=== PATIENT | male | born 1960 | race Caucasian/White ===

== ENCOUNTER → 2016-07-22 | Outpatient (CLI) | payer BC ==
[2016-07-22] VITALS (14 sets, daily range): BP systolic 98–130; BP diastolic 65–80
[~2016-07-22] VITALS: Ht 177.8 cm; Wt 77.1 kg
[~2016-07-22] MED LIST: FENTANYL PF 250 MCG/5 ML VIAL. IV ONE; FENTANYL PF 250 MCG/5 ML VIAL. ONE; KETOROLAC TROMETHAMINE 30 MG/ML INJ. IV PRN; LIDOCAINE 1% / SOD BICARB 8.4% 20 ML VIAL. IJ ONE; MIDAZOLAM HCL/PF 5 MG/5 ML VIAL. IV ONE; MIDAZOLAM HCL/PF 5 MG/5 ML VIAL. ONE; PROVENTIL HFA6.7 GM IH; [UNRECOGNIZED DRUG - OTHER]
[2016-07-22 07:41] LABS: BASO # 0.1 x10^3/uL (0.0-0.2); BASO % 1 % (0-3); EOS % 5 % (0-3); HEMATOCRIT 45.3 % (39.0-53.0); LYMPH # 1.5 x10^3/uL (1.0-4.8); LYMPH % 25 % (24-48); MEAN CORPUSCULAR HEMOGLOBIN 28 pg (25-35); MEAN CORPUSCULAR HGB CONC 33 g/dL (31-37); MEAN CORPUSCULAR VOLUME 85 fL (79-100); MONO % 9 % (0-9); NEUT % 60 % (31-73); PLATELET COUNT 240 x10^3/uL (140-400); RED BLOOD COUNT 5.31 x10^6/uL (4.30-5.70); RED CELL DISTRIBUTION WIDTH 14.6 % (11.5-14.5); WHITE BLOOD COUNT 6.1 x10^3/uL (4.0-11.0)
[2016-07-22 07:51] LABS: PROTHROMBIN TIME PATIENT 12.3 SEC (11.7-14.0)
--- NOTE | 2016-07-22 09:43 | PDOC ---
MODERATE SEDATION ASSESSMENT RISKS/ALTERNATIVES Risks/Alternatives Risks and alternatives of this type of sedation and procedure discussed with: RISK/ALTERNATIVES: Patient H & P ON CHART H & P H & P on chart and reviewed for co-morbid conditions and appropriate labs. H&P ON CHART: Yes STATUS PREG STATUS ASSESSED: N/A MEDS/ALLERGIES REVIEWED Meds/Allergies Reviewed Medications and Allergies including time and route of recently administered narcotics and sedatives. MEDS/ALLERGIES REVIEWED: Yes ASA RATING ASA RATING: II AIRWAY ASSESSMENT Airway Assessment Airway patency, oral function limitations, presence of caps, crowns, dentures, partials, and ability to extend neck assessed. AIRWAY ASSESSMENT: Yes MALLAMPATI SCORE MALLAMPATI SCORE: II PRE-SEDATION ASSESSMENT PRE-SEDATION ASSESSMENT: Yes JOAN ANDUJAR MD Jul 22, 2016 09:43
--- NOTE | 2016-07-22 09:49 | PDOC1 ---
History and Physical Date of Procedure Date of Admission 07/22/[address] guided rt lung mass bx Indication Indication 56 YO previous smoker, with a 2.5cm, noncalcific parenchymal mass within posterolateral aspect of right lung base---? bronchogenic carcinoma Past Medical History Past Medical History See Nursing Pre procedure PMH Past Surgical History Past Surgical History See Nursing Pre procedure PSH Current Medications Current Medications Current Medications Lidocaine/Sodium Bicarbonate (Buffered Lidocaine 1%) 20 ml STK-MED ONCE IJ ; Start 07/22/16 at 08:09; Stop 07/22/16 at 08:10; Status DC Midazolam HCl (Versed) 5 mg STK-MED ONCE .ROUTE ; Start 07/22/16 at 08:38; Stop 07/22/16 at 08:39; Status DC Fentanyl Citrate (Fentanyl 5ml Vial) 250 mcg STK-MED ONCE .ROUTE ; Start at 08:38; Stop 07/22/16 at 08:39; Status DC Lidocaine/Sodium Bicarbonate (Buffered Lidocaine 1%) 20 ml 1X ONCE IJ Last administered on 07/22/16 09:34; Start 07/22/16 at 08:45; Stop 07/22/16 at 08:46 ; Status DC Midazolam HCl (Versed) 5 mg 1X ONCE IV Last administered on 07/22/16 09:34; Start 07/22/16 at 08:45; Stop 07/22/16 at 08:46; Status DC Fentanyl Citrate (Fentanyl 5ml Vial) 250 mcg 1X ONCE IV Last administered on 09:34; Start 07/22/16 at 08:45; Stop 07/22/16 at 08:46; Status DC Active Scripts Active Reported [advail] PRN Proventil Hfa Inhaler (Albuterol Sulfate) 6.7 Gm Hfa.aer.ad 1 Puff IH PRN Q4HRS Allergies Allergies: Coded Allergies: No Known Drug Allergies (Unverified , 07/22/16) Physical Exam Vital Signs Vital Signs Date Time Temp Pulse Resp B/P Pulse Ox O2 Delivery O2 Flow Rate FiO2 07/22/16 09:34 14 96 Nasal Cannula 2.0 07/22/16 09:28 71 07/22/16 08:00 97.8 120/78 97.8 Lungs: Clear to auscultation Heart: Regular rate Psych/Mental Status: Mental status NL Diagnostic Data/Imaging Images Outside CT chest from [facility] imaging dated 06/18/16 reviewed Assessment Assessment Previous smoker with CT evidence of emphysema and with noncalcific 2.5 cm mass within rt lung base---? bronchogenic carcinoma. Problems: Plan Plan CT guided rt lung mass bx, with possible chest tube insertion. JOAN ANDUJAR MD Jul 22, 2016 09:49
--- NOTE | 2016-07-22 09:53 | PDOC ---
Exam Compensation Consulting Manager Compensation Consulting Manager Marcela Manager Studio Manager Studio B Cates Pre-Procedure Diagnosis Pre-Procedure Diagnosis 56 YO male prior smoker with emphysema, and with 2.5cm noncalcific mass within right lung base----? bronchogenic carcinoma Post-Procedure Diagnosis Post-Procedure Diagnosis Same Procedure Performed Procedure Performed CT guided rt lung mass biopsy. Type of Anesthesia Type of Anesthesia Local + Mod sedation Estimated Blood Loss EBL: Minimal Specimens Specimans 3 18G core bx samples to path in formalin Condition of Patient Condition of Patient Stable. Small immediate post bx ptx aspirated thru bx guided needle prior to removal. Disposition Disposition From IR/CT to CVOBS. 1 hr post bx insp/exp CXR requested. Home from [facility]OBS post recovery, if no ptx or other problem. F/u with Dr Johnson. Full report to follow. JOAN ANDUJAR MD Jul 22, 2016 09:53
--- NOTE | 2016-07-22 11:02 | RAD ---
Portable chest, inspiration and expiration AP views, 07/22/2016: History: Lung biopsy follow-up No previous chest radiographs are available at this time for comparison purposes. The heart size and pulmonary vascularity are normal. There is an ill-defined parenchymal opacity in the lateral aspect of the right lower lobe compatible with the lesion biopsied earlier today. There are emphysematous changes in the apices. There are scattered parenchymal scars. Blunting of the left lateral costophrenic angle is probably due to scarring. There is no evidence of pneumothorax or significant hemothorax status post right lung biopsy. IMPRESSION: 1. Emphysema with parenchymal scarring. 2. Right basilar lung nodule. 3. No post lung biopsy complication is identified.
--- NOTE | 2016-07-23 07:15 | RAD ---
CT-guided right lung biopsy Indication: 56-year-old male previous smoker with a spiculated, noncalcified, subpleural parenchymal mass within posterior lateral aspect of right lung base. Probable bronchogenic carcinoma. CT-guided biopsy has been requested. Anesthesia: 26 minutes moderate sedation was provided utilizing a total of 1 mg Versed and 50 mcg fentanyl, IV. The patient was appropriately monitored by a qualified independent observer throughout the time of moderate sedation. Consent: The procedure was explained in its entirety to the patient and/or the patient's designated technical support representative by a member of the treatment team. This included a discussion of risks and benefits and acceptable alternatives to the procedure, as well as expected consequences of no treatment at all. Discussion of risks included, but was not limited to, those that are most frequent and those that are rare, but possibly severe or life-threatening, as well as the possibility of unforeseen complications. Procedure: Informed consent was obtained from the patient. He was placed prone on the CT scanner. Preliminary noncontrast CT images were obtained through lung bases. Those images confirmed the presence of a spiculated, noncalcified, subpleural parenchymal opacity within posterior lateral aspect of right lung base. A right posterior lateral skin site suitable for CT-guided biopsy was selected and marked. That area was prepped and draped in the usual sterile fashion. Moderate sedation was provided with IV Versed and fentanyl. Using aseptic technique, local anesthesia, and CT guidance, a 17-gauge guide needle was successfully introduced into the right lung mass. A total of 3 18-gauge core biopsy samples were obtained. Biopsy material was submitted in formalin to pathology. Patient tolerated the procedure well without apparent complication. Completion CT images revealed no evidence of immediate pneumothorax. A 1 hour post biopsy inspiration/expiration chest x-ray will be obtained in CV observation, to exclude delayed pneumothorax, prior to patient discharge. Impression: Successful, uneventful CT-guided biopsy of right lower lobe noncalcified, spiculated lung mass, as described. PQRS Compliance Statement: One or more of the following individualized dose reduction techniques was utilized for this procedure: 1. Automated exposure control. 2. Adjustment of MA and/or KV according to patient size. 3. Iterative reconstruction technique.
--- NOTE | 2016-07-24 13:09 | PATHOLOGY ---
PATHOLOGY REPORT * * * * * * * * FINAL DIAGNOSIS: Lung, "right lower lobe lung mass," needle core biopsies: - MODERATELY DIFFERENTIATED ADENOCARCINOMA. (SEE COMMENT) COMMENT: This case is also reviewed by Dr. Ceci Gordon. This case is discussed with Dr. Evan Medrano on 07/24/2016 at 11am. (SHA:; d/t: 07/23/16) REPORT ELECTRONICALLY SIGNED BY: Beck Ohara M.D. DATE/TIME: 07/24/2016 13:08 * * * * * * * * GROSS PATHOLOGY: Received in formalin labeled "Jasmeet Castro, right lung biopsy," are four distinct needle cores of voss soft tissue ranging from 0.6 to 1.4 cm in length, which are submitted entirely in cassette A1. (CAA; 07/23/2016) INITIAL CPT CODE(S): A; 35492 Professional services performed [place] [facility] [address] Technical services performed by [facility] at [address] [place] [address] [address] [address]. SPECIMEN(S) RECEIVED: A.Right lower lobe lung mass CLINICAL HISTORY: Previous smoker, right lower lobe lung mass, ? bronch ca PATIENT: JASMEET CASTRO /AGE: 1001/24/1960 (Age: 56) PATIENT #: [id number] ALT CASE #: SPECIMEN COLLECTION DATE: 07/22/2016 SPECIMEN RECEIVED DATE: 07/22/2016 [facility] - [address] [place] [address] - PHONE: [phone] * * * END OF REPORT * * *
== END | disposition home or self-care (01) ==
LOC: INTRAD 07:02
PROVIDERS: ATTEND Internal Medicine Critical Care Medicine
DX: C34.31 Malignant neoplasm of lower lobe, right bronchus or lung (principal); J45.909 Unspecified asthma, uncomplicated; Z87.891 Personal history of nicotine dependence; Z86.14 Personal history of Methicillin resistant Staphylococcus aureus infection; Z79.01 Long term (current) use of anticoagulants
CPT/HCPCS: 32405; 36415; 71035; 77012; 85027; 85610; J2250; J3010; 88305

== ENCOUNTER → 2016-08-04 | Outpatient (CLI) | payer BC ==
[2016-07-22 11:30] VITALS: BP 119/71
[~2016-08-04] MED LIST changes: -FENTANYL PF 250 MCG/5 ML VIAL. IV ONE; -FENTANYL PF 250 MCG/5 ML VIAL. ONE; -KETOROLAC TROMETHAMINE 30 MG/ML INJ. IV PRN; -LIDOCAINE 1% / SOD BICARB 8.4% 20 ML VIAL. IJ ONE; -MIDAZOLAM HCL/PF 5 MG/5 ML VIAL. IV ONE; -MIDAZOLAM HCL/PF 5 MG/5 ML VIAL. ONE
--- NOTE | 2016-08-04 17:44 | RESP ---
DATE OF SERVICE: 08/04/2016 The patient's FVC was 3.29 which is 67% of predicted. FEV1 was 1.4 which is 39% of predicted. FEV1/FVC ratio was reduced. Post-bronchodilator, there was a significant improvement in FEV1 to 1.93 which was 34% of predicted and 18% improvement in FVC. Lung volume showed total lung capacity 164% of predicted, residual volume 367% of predicted. Diffusion capacity is 71% of predicted. IMPRESSION: 1. Moderate to severe obstructive airway disease. 2. Excellent response to bronchodilators suggesting a component of reactive airway disease as well. 3. Lung volumes consistent with hyperinflation and air trapping. 4. Mildly reduced diffusion capacity. LEODAN KOEHLER MD DR: INGRID/carla JOB#: [id number] / [id number]
--- NOTE | 2016-08-06 17:36 | RESP ---
DATE OF SERVICE: 08/04/2016 The patient's FVC was 3.29 which was 67% of predicted. FEV1 was 1.44 which was 39% of predicted. The FEV1/FVC ratio was reduced. Postbronchodilator, he had an excellent response. His FEV1 improved to 1.93 which was 52% of predicted, and this was a 34% improvement. His FVC improved 18% as well post-bronchodilator. Total lung capacity was 164% of predicted. Residual volume was 367% of predicted. Diffusion capacity was 71% of predicted. IMPRESSION: 1. Moderate to severe obstructive airway disease with an excellent response to bronchodilators. 2. Lung volumes consistent with air trapping and hyperinflation. 3. Mildly reduced diffusion capacity. LEODAN KOEHLER MD DR: INGRID/carla JOB#: [id number] / [id number] JU
== END | disposition home or self-care (01) ==
LOC: PF 07:58
PROVIDERS: ATTEND Internal Medicine Critical Care Medicine
DX: R06.02 Shortness of breath (principal)
CPT/HCPCS: 94060; 94729

== ENCOUNTER → 2016-08-13 | Outpatient (CLI) | payer BC ==
[2016-07-22 11:30] VITALS: BP 119/71
--- NOTE | 2016-08-13 15:31 | RAD ---
FDG tumor localization scan, PET/CT, 08/13/2016: History: Lung mass Following IV injection of 13.3 mCi of 18 F-FDG, imaging was performed from the skull base to the proximal thighs. The noncontrast CT component was performed for attenuation correction and anatomic localization purposes rather than for primary diagnosis. The patient's blood glucose level at time of injection was 94 MG/DL. There is a hypermetabolic mass in the posterolateral aspect of the right lower lobe. It demonstrates a maximum SUV of 10.5. It measures approximately 3.5 cm in diameter. Its margins are irregular. This mass appears to have increased slightly in size since an outside CT study from 06/18/2016. There are 2 hypermetabolic foci at the right hilum demonstrating a maximum SUV of 6.8. These are presumably lymph nodes, however, they cannot be clearly from the unopacified vessels on the noncontrast CT images. There are additional tiny mildly hypermetabolic foci in the right paratracheal and subcarinal regions. History of the of these mediastinal foci is approximately 3.0. There is a small hypermetabolic focus in the anterior aspect of the left upper chest which corresponds to a small irregular pleural-parenchymal opacity. The maximum SUV at this level is 3.3. This process could be inflammatory or neoplastic. There is a small hypermetabolic focus involving the anterolateral aspect of approximately the right sixth rib. There is a tiny underlying sclerotic focus in the rib at this level. A blastic metastasis is a possibility. Physiologic activity is evident in the neck. Normal GI tract and urinary tract activity is present in the abdomen and pelvis. No hypermetabolic abdominal or pelvic process is seen. The prostate gland is mildly enlarged, partially calcified and demonstrates nonspecific nonspecific heterogeneous FDG uptake. Incidental CT findings include the presence of moderate pulmonary emphysema with scattered parenchymal scars. IMPRESSION: 1. Enlarging hypermetabolic right lower lobe pulmonary mass suggesting a primary lung malignancy. 2. Hypermetabolic foci at the right hilum compatible with adenopathy on a metastatic basis. 3. Less prominent small foci of abnormal right paratracheal and subcarinal FDG activity suggesting early adenopathy. 4. Small subpleural hypermetabolic lesion in the left upper lobe which may be inflammatory or neoplastic. 5. Hypermetabolic sclerotic focus in the right sixth rib raising the possibility of a bony metastasis.
== END | disposition home or self-care (01) ==
LOC: PETSC 12:05
PROVIDERS: ATTEND Internal Medicine Critical Care Medicine
DX: R91.8 Other nonspecific abnormal finding of lung field (principal); R59.9 Enlarged lymph nodes, unspecified
CPT/HCPCS: 78815; A9552

== ENCOUNTER → 2016-09-22 | Outpatient (CLI) | payer BC ==
[2016-07-22 11:30] VITALS: BP 119/71
[~2016-09-22] MED LIST changes: +GADOBUTROL 7.5 MMOL/7.5 ML VIAL IV ONE; +TIOT4MIS3 IH
--- NOTE | 2016-09-22 13:31 | RAD ---
MRI of the Brain without and with Contrast 09/22/2016 Clinical History: Newly diagnosed with lung cancer. Technique: Unenhanced T1-weighted sagittal and axial and FLAIR, T2-weighted, gradient echo and diffusion-weighted axial images of the brain were obtained. After the intravenous administration of 7.5 cc of Gadavist, enhanced T1-weighted axial, sagittal and coronal images of the brain were obtained. Findings: There is mild generalized parenchymal atrophy. Patchy and small scattered areas of abnormally increased signal intensity are seen within the periventricular and subcortical white matter of both cerebral hemispheres on the FLAIR and T2-weighted images consistent with areas of very mild small vessel ischemic disease. No acute parenchymal abnormality is seen. No abnormal area of contrast enhancement is noted. No extra-axial fluid collection is seen. There is no MRI evidence of acute ischemia/infarction. Mild mucosal thickening is seen throughout the paranasal sinuses. There are minimal bilateral mastoid effusions. Normal flow voids are seen within the major vascular structures surrounding the brain parenchyma. Impression: No acute parenchymal abnormality is seen. There is no MRI evidence of metastatic disease involving the brain parenchyma. Electronically signed by: Evan Cisneros MD (09/22/2016 1:28 PM)
== END | disposition home or self-care (01) ==
LOC: MRI 10:44
PROVIDERS: ATTEND Radiology Radiation Oncology
DX: C34.90 Malignant neoplasm of unspecified part of unspecified bronchus or lung (principal); G31.9 Degenerative disease of nervous system, unspecified
CPT/HCPCS: 70553; A9585

== ENCOUNTER → 2017-04-30 | Outpatient (CLI) | payer BC ==
[2017-04-30] MEDS: IOHEXOL 300 MG/ML 100ML VIAL. IV ×2 (13:50)
[2017-04-30 13:55] LABS: ISTAT CREATININE 0.9 mg/dL (0.7-1.3)
== END | disposition home or self-care (01) ==
LOC: KCIC CT 13:17
DX: I26.99 Other pulmonary embolism without acute cor pulmonale (principal); I70.0 Atherosclerosis of aorta; J43.9 Emphysema, unspecified; J47.9 Bronchiectasis, uncomplicated; E27.9 Disorder of adrenal gland, unspecified; Z85.118 Personal history of other malignant neoplasm of bronchus and lung
CPT/HCPCS: 71275; 82565; Q9967

== ENCOUNTER → 2017-07-02 | Outpatient (CLI) | payer BC ==
[2017-07-02] MEDS: IOHEXOL 300 MG/ML 100ML VIAL. IV (09:40)
== END | disposition home or self-care (01) ==
LOC: KCIC CT 09:14
DX: I26.99 Other pulmonary embolism without acute cor pulmonale (principal); J18.1 Lobar pneumonia, unspecified organism; Z85.118 Personal history of other malignant neoplasm of bronchus and lung; Z86.711 Personal history of pulmonary embolism
CPT/HCPCS: 71275; Q9967

== ENCOUNTER 2017-07-26 14:46 | Observation (INO) | payer BC ==
[2017-07-26 16:45] LABS: BILIRUBIN,URINE NEGATIVE (NEG); CLARITY,URINE CLEAR; COLOR,URINE YELLOW; GLUCOSE,URINE NEGATIVE (NEG); NITRITE,URINE NEGATIVE (NEG); PROTEIN,URINE NEGATIVE (NEG-TRACE)
[2017-07-26 16:50] LABS: BARBITURATES NEG (NEG); BENZODIAZEPINES NEG (NEG); CANNABINOIDS NEG (NEG); COCAINE NEG (NEG); METHADONE NEG (NEG); OPIATES POS (NEG); PHENCYCLIDINE NEG (NEG)
[2017-07-26 16:53] LABS: AMPHETAMINE/METHAMPHETAMINE NEG (NEG); ETHANOL, URINE NEG (NEG)
[2017-07-26 16:54] LABS: BASO % 0 % (0-3); EOS % 0 % (0-3); HEMATOCRIT 34.8 % (39.0-53.0); HEMOGLOBIN 11.8 g/dL (13.0-17.5); LYMPH # 0.9 x10^3/uL (1.0-4.8); LYMPH % 9 % (24-48); MEAN CORPUSCULAR HEMOGLOBIN 30 pg (25-35); MEAN CORPUSCULAR HGB CONC 34 g/dL (31-37); MEAN CORPUSCULAR VOLUME 88 fL (79-100); MONO % 10 % (0-9); NEUT # 8.1 x10^3uL (1.8-7.7); NEUT % 80 % (31-73); PLATELET COUNT 261 x10^3/uL (140-400); RED BLOOD COUNT 3.97 x10^6/uL (4.30-5.70); RED CELL DISTRIBUTION WIDTH 18.7 % (11.5-14.5); WHITE BLOOD COUNT 10.1 x10^3/uL (4.0-11.0)
[2017-07-26 16:56] LABS: ADD MAN DIFF? YES
[2017-07-26 16:57] LABS: BACTERIA,URINE 0 /HPF (0-FEW); HYALINE CASTS, URINE MODERATE /HPF; WBC,URINE 0 /HPF (0-4)
[2017-07-26 17:08] LABS: INR 1.9 (0.8-1.1); PROTHROMBIN TIME PATIENT 21.2 SEC (11.7-14.0)
[2017-07-26 17:16] LABS: % BANDS 22 % (0-9); % LYMPHS 7 % (24-48); % METAS 2 % (0-0); % MONOS 8 % (0-10); % SEGS 61 % (35-66); PLT ESTIMATE ADEQUATE (ADEQUATE)
[2017-07-26 17:17] LABS: ANISOCYTOSIS SLIGHT
[2017-07-26 17:19] LABS: ANION GAP 6 (6-14); BLOOD UREA NITROGEN 19 mg/dL (8-26); CALCIUM 9.2 mg/dL (8.5-10.1); CARBON DIOXIDE 30 mmol/L (21-32); CHLORIDE 100 mmol/L (98-107); CREATININE 1.3 mg/dL (0.7-1.3); GFR 56.9; GLUCOSE 92 mg/dL (70-99); POTASSIUM 4.6 mmol/L (3.5-5.1); SODIUM 136 mmol/L (136-145)
[2017-07-26 17:31] LABS: ALBUMIN 2.8 g/dL (3.4-5.0); ALK PHOS 55 U/L (46-116); ALT (SGPT) 25 U/L (16-63); AST (SGOT) 15 U/L (15-37); CKMB INDEX 2.7 % (0-4); CKMB MASS 0.8 ng/mL (0.0-3.6); CREATINE KINASE 30 U/L (39-308); DIRECT BILIRUBIN 0.1 mg/dL (0.0-0.2); MAGNESIUM 2.4 mg/dL (1.8-2.4); TOTAL BILIRUBIN 0.7 mg/dL (0.2-1.0); TOTAL PROTEIN 7.3 g/dL (6.4-8.2)
[2017-07-26] MEDS: GADOBUTROL 7.5 MMOL/7.5 ML VIAL IV (18:06)
[2017-07-26] MEDS: DEXAMETHASONE SOD PHOS 4 MG/ML VIAL IV (20:30)
[2017-07-26] MEDS ORDERED: ONDANSETRON PF 4 MG/2 ML VIAL. IV ×2 (21:45)
[2017-07-26] MEDS ORDERED: GABAPENTIN 300 MG CAPSULE. PO ×2 (23:00)
[2017-07-27] MEDS ORDERED: ALBUTEROL SULFATE 2.5 MG/3 ML NEBU. NEB (00:15)
[2017-07-27] MEDS: DESMOPRESSIN 0.1 MG TABLET. PO (00:30)
[2017-07-27] MEDS: GABAPENTIN 300 MG CAPSULE. PO ×3 (00:31→11:47)
[2017-07-27] MEDS: MORPHINE IR 15 MG TABLET PO (00:32)
[2017-07-27] MEDS: DEXAMETHASONE SOD PHOS 4 MG/ML VIAL IV ×3 (00:32→11:48)
[2017-07-27] MEDS: ANTI-COAG MONITOR BY PHARMACY. MC (01:52)
[2017-07-27 07:24] LABS: ADD MAN DIFF? NO
[2017-07-27 07:31] LABS: BASO % 0 % (0-3); EOS % 0 % (0-3); HEMATOCRIT 34.5 % (39.0-53.0); HEMOGLOBIN 11.9 g/dL (13.0-17.5); LYMPH # 0.5 x10^3/uL (1.0-4.8); LYMPH % 7 % (24-48); MEAN CORPUSCULAR HEMOGLOBIN 30 pg (25-35); MEAN CORPUSCULAR HGB CONC 35 g/dL (31-37); MEAN CORPUSCULAR VOLUME 87 fL (79-100); MONO # 0.3 x10^3/uL (0.0-1.1); MONO % 5 % (0-9); NEUT % 88 % (31-73); PLATELET COUNT 276 x10^3/uL (140-400); RED BLOOD COUNT 3.95 x10^6/uL (4.30-5.70); RED CELL DISTRIBUTION WIDTH 18.3 % (11.5-14.5); WHITE BLOOD COUNT 6.9 x10^3/uL (4.0-11.0)
[2017-07-27 07:55] LABS: ALBUMIN 2.5 g/dL (3.4-5.0); ALBUMIN/GLOBULIN RATIO 0.5 (1.0-1.7); ALK PHOS 55 U/L (46-116); ALT (SGPT) 23 U/L (16-63); ANION GAP 9 (6-14); AST (SGOT) 13 U/L (15-37); BLOOD UREA NITROGEN 16 mg/dL (8-26); BUN/CREATININE RATIO 16 (6-20); CALCIUM 9.4 mg/dL (8.5-10.1); CARBON DIOXIDE 28 mmol/L (21-32); CHLORIDE 102 mmol/L (98-107); GLUCOSE 134 mg/dL (70-99); POTASSIUM 4.8 mmol/L (3.5-5.1); SODIUM 139 mmol/L (136-145); TOTAL BILIRUBIN 0.6 mg/dL (0.2-1.0); TOTAL PROTEIN 7.2 g/dL (6.4-8.2)
[2017-07-27] MEDS ORDERED: TESTOSTERONE 2.5 GM TD (08:00)
[2017-07-27] MEDS: BUDESONIDE 0.5 MG/2 ML NEBU. NEB (08:07)
[2017-07-27] MEDS: ALBUTEROL SULFATE 2.5 MG/3 ML NEBU. NEB ×3 (08:07→16:00)
[2017-07-27] MEDS: FOLIC ACID 1 MG TABLET. PO (08:13)
[2017-07-27] MEDS: RIVAROXABAN 10 MG TABLET. PO (08:13)
[2017-07-27] MEDS: SENNOSIDES 8.6 MG TABLET PO (08:13)
[2017-07-27] MEDS: LEVOTHYROXINE 75 MCG TABLET PO (08:13)
[2017-07-27] MEDS: PANTOPRAZOLE 40 MG TABLET.DR. PO (08:13)
[2017-07-27] MEDS: HYDROCORTISONE 10 MG TABLET PO ×2 (08:14→11:47)
[2017-07-27] MEDS ORDERED: DEXAMETHASONE 4 MG TABLET PO (09:00)
[2017-07-27] MEDS ORDERED: NON FORMULARY ITEM (Fluticasone/Vilanterol (Breo Ellipta 100-25 Mcg Inh) 1 PUFF) IH (09:00)
[2017-07-27] MEDS ORDERED: NON FORMULARY ITEM (Albuterol Sulfate (Ventolin Hfa Inhaler) 2 PUFF) INH (09:00)
[2017-07-27] MEDS ORDERED: ONDANSETRON ODT 4 MG TAB.RAPDIS. PO (09:30)
[2017-07-27] MEDS ORDERED: ONDANSETRON PF 4 MG/2 ML VIAL. IV (09:30)
[2017-07-27] MEDS ORDERED: oxyCODONE IR 5 MG TABLET PO ×2 (09:30)
[2017-07-27] MEDS ORDERED: ACETAMINOPHEN 500 MG TABLET PO (09:30)
[2017-07-27 14:31] LABS: MRSA BY PCR Negative (Negative)
[2017-07-27] MEDS ORDERED: HYDROCORTISONE 10 MG TABLET PO (17:00)
[2017-07-27] MEDS ORDERED: DESMOPRESSIN NS (21:00)
[2017-07-27] MEDS ORDERED: MIRTAZAPINE 15 MG TABLET PO (21:00)
== END 2017-07-27 16:50 | disposition home or self-care (01) ==
LOC: ER 14:46 → 6 SOUTH 20:19
DX: C34.31 Malignant neoplasm of lower lobe, right bronchus or lung (principal); C79.31 Secondary malignant neoplasm of brain; J44.9 Chronic obstructive pulmonary disease, unspecified; H53.2 Diplopia; D64.9 Anemia, unspecified; E23.2 Diabetes insipidus; R29.810 Facial weakness; D63.0 Anemia in neoplastic disease
CPT/HCPCS: 36415; 70553; 80048; 80053; 80076; 80307; 81001; 82553; 83735; 84443; 85007; 85025; 85610; 87641; 93005; 94640; 96374; 96375; 96376; 99285-25; A9585; G0378; G0379; J1100; J7613; J7626